=== PATIENT | female | born 2000 | race Two or more races ===

== ENCOUNTER 2019-04-01 04:06 | Observation (INO) | payer MEDICAID, OTHER ==
[~2019-04-01] VITALS: Ht 154.9 cm; Wt 65.7 kg
--- NOTE | 2019-04-01 04:18 | NUR ---
PT AMBULATES FROM TRIAGE TO ROOM WITH STEADY GAIT.
[2019-04-01] MEDS ORDERED: MAALOX/HYOSCYAMINE/LIDOCAINE 45 ML BTL ONE (04:34)
--- NOTE | 2019-04-01 04:35 | NUR ---
PT MEDICATED PER MAR.
[2019-04-01] MEDS ORDERED: MAALOX/HYOSCYAMINE/LIDOCAINE 45 ML BTL PO ONE (05:00)
[2019-04-01 05:09] LABS: BASOPHILS # (AUTO) 0.05 x10^3/uL (0-0.3); BASOPHILS % (AUTO) 1 % (0-1); EOSINOPHILS # (AUTO) 0.32 x10^3/uL (0-0.8); EOSINOPHILS % (AUTO) 4 % (1-7); LYMPHOCYTES # (AUTO) 1.55 x10^3/uL (1-6.1); LYMPHOCYTES % (AUTO) 18 % (22-44); MD NO; MEAN CORPUSCULAR HEMOGLOBIN 27.6 pg (27.0-34.8); MEAN CORPUSCULAR HGB CONC 32.3 g/dL (32.4-35.8); MEAN CORPUSCULAR VOLUME 85.3 fL (80-100); MEAN PLATELET VOLUME 8.2 fL (7.4-10.4); MONOCYTES # (AUTO) 0.69 x10^3/uL (0-1.4); MONOCYTES % (AUTO) 8 % (2-9); NEUTROPHILS # (AUTO) 6.17 x10^3/uL (1.8-8.0); NEUTROPHILS % (AUTO) 70 % (42-75); PLATELET COUNT 340 x10^3/uL (130-400); RED BLOOD COUNT 4.68 x10^6/uL (3.82-5.3); RED CELL DISTRIBUTION WIDTH 16.6 % (9.6-15.2)
[2019-04-01 05:22] LABS: ALBUMIN 3.4 g/dL (3.4-5.0); ANION GAP 8 mmol/L (5-15); CALCIUM 9.2 mg/dL (8.5-10.1); CHLORIDE 108 mmol/L (98-107); CREATININE 0.43 mg/dL (0.55-1.02)
[2019-04-01 05:26] LABS: ALKALINE PHOSPHATASE 405 U/L (45-117); BILIRUBIN,TOTAL 1.9 mg/dL (0.2-1.0); TOTAL PROTEIN 8.1 g/dL (6.4-8.2)
[2019-04-01 05:28] LABS: ALANINE AMINOTRANSFERASE 1127 U/L (12-78)
[2019-04-01] MEDS ORDERED: POTASSIUM CHLORIDE 40 MEQ in SODIUM CHLORIDE 0.9% 500 ML IV ONE (06:00)
--- NOTE | 2019-04-01 06:08 | NUR ---
IV ACCESS INITIATED. URINE COLLECTED AND SENT TO LAB AT THIS TIME. PT AWARE OF POC AND VERBALIZES UNDERSTANDING. CALL LIGHT IS WITHIN REACH. PHARMACY NOTIFIED OF NEED FOR POTASSIUM, AND JOVANNY IN PHARMACY TO TUBE POTASSIUM ONCE MIXED.
[2019-04-01 06:24] LABS: CULTURE INDICATED? YES; MICROSCOPIC INDICATED
--- NOTE | 2019-04-01 06:51 | NUR ---
REPORT RECEIVED FROM KURT BROWNLEE.
--- NOTE | 2019-04-01 06:54 | NUR ---
REPORT OF PT TO KEM SANCHEZ AT THIS TIME. ALL QUESTIONS ANSWERED.
--- NOTE | 2019-04-01 07:20 | NUR ---
MEDICATION ORDERED FROM PHARMACY. CEFOTAN AND POTASSIUM ARE COMPATIBLE PER PHARMACY. AWAITING CEFOTAN AT THIS TIME.
[2019-04-01] MEDS ORDERED: CEFOTETAN PMX 1GM/50ML 50 ML IV ONE (07:30)
--- NOTE | 2019-04-01 08:27 | NUR ---
BREAK RN: PATIENT MEDICATED PER EMAR
--- NOTE | 2019-04-01 09:09 | NUR ---
pt resting in [facility]. pt's aox4. resps even and unlabored. bp/spo2 monitors in place. call light within reach.
--- NOTE | 2019-04-01 10:09 | NUR ---
report given to julieta monzon. all questions answered.
[2019-04-01] MEDS ORDERED: MORPHINE SULFATE 4 MG/ML, 1ML IVPush PRN (10:30)
[2019-04-01] MEDS ORDERED: ONDANSETRON 2MG/ML, 2ML IVPush PRN (10:30)
[2019-04-01 10:39] VITALS: BP 90/50
[2019-04-01] MEDS ORDERED: No home meds. (10:48)
[2019-04-01 12:36] VITALS: BP 94/60
[2019-04-01] MEDS: POTASSIUM CHLORIDE 20 MEQ in D5%-0.45% NACL 1,000 ML IV SCH ×2 (14:10→21:05)
[2019-04-01] MEDS ORDERED: EPINEPHRINE 1 MG/ML, 1ML ONE (14:31)
[2019-04-01] MEDS ORDERED: BUPIVACAINE/PF 0.5% ONE (14:31)
[2019-04-01] MEDS ORDERED: MIDAZOLAM 1 MG/ML, 2ML ONE (14:34)
[2019-04-01] MEDS ORDERED: FENTANYL PF 250 MCG/5ML ONE (14:34)
[2019-04-01] MEDS ORDERED: ONDANSETRON ODT 8 MG PO PRN (15:00)
[2019-04-01] MEDS ORDERED: PROMETHAZINE 25 MG SUPP PR PRN (15:00)
[2019-04-01] MEDS ORDERED: OXYcodone 5 MG/5 ML ORAL.SOL UDC PO PRN (15:00)
[2019-04-01] MEDS ORDERED: PROMETHAZINE 25 MG/ML, 1ML IV PRN (15:00)
[2019-04-01] MEDS ORDERED: ACETAMINOPHEN 325 MG TABLET PO PRN (15:00)
[2019-04-01] MEDS ORDERED: LORazepam 2 MG/ML, 1ML IVPush PRN (15:00)
[2019-04-01] MEDS ORDERED: ONDANSETRON 2MG/ML, 2ML IV PRN (15:00)
[2019-04-01] MEDS ORDERED: ROCURONIUM 10MG/ML,5ML ONE (15:33)
[2019-04-01] MEDS ORDERED: ONDANSETRON 2MG/ML, 2ML ONE (15:33)
[2019-04-01] MEDS ORDERED: GLYCOPYRROLATE 0.2MG/1ML, 5ML ONE (15:33)
[2019-04-01] MEDS ORDERED: CEFAZOLIN 1,000 MG ONE (15:33)
[2019-04-01] MEDS ORDERED: PROPOFOL 10 MG/ML, 20ML ONE (15:33)
[2019-04-01] MEDS ORDERED: SUCCINYLCHOLINE 20 MG/ML, 10ML ONE (15:33)
[2019-04-01] MEDS ORDERED: DEXAMETHASONE 4 MG/ML, 1ML ONE (15:33)
[2019-04-01] MEDS ORDERED: NEOSTIGMINE 1 MG/ML, 10ML ONE (15:33)
[2019-04-01] MEDS ORDERED: ACETAMINOPHEN 650 MG/20.3 ML UDC ONE (16:03)
[2019-04-01] MEDS ORDERED: FENTANYL PF 100 MCG/2ML ONE (16:04)
[2019-04-01] MEDS ORDERED: OXYcodone 5 MG/5 ML ORAL.SOL UDC ONE (16:04)
[2019-04-01] MEDS: FENTANYL PF 100 MCG/2ML IV PRN ×4 (16:08→16:20)
[2019-04-01] MEDS ORDERED: HYDROmorphone 1 MG/ML, 1ML INJ ONE (16:27)
[2019-04-01] MEDS: HYDROmorphone 2 MG/ML, 1ML IVPush PRN ×2 (16:30→16:50)
[2019-04-01 18:35] VITALS: BP 117/76
[2019-04-01] MEDS: OXYcodone/APAP 5/325MG TABLET PO PRN ×2 (19:39→23:49)
[2019-04-02 00:10] VITALS: BP 105/70
[2019-04-02] MEDS: OXYcodone/APAP 5/325MG TABLET PO PRN ×2 (04:20→09:05)
[2019-04-02] MEDS: POTASSIUM CHLORIDE 20 MEQ in D5%-0.45% NACL 1,000 ML IV SCH (04:24)
[2019-04-02 06:00] LABS: BASOPHILS # (AUTO) 0.02 x10^3/uL (0-0.3); BASOPHILS % (AUTO) 0 % (0-1); EOSINOPHILS # (AUTO) 0.15 x10^3/uL (0-0.8); EOSINOPHILS % (AUTO) 1 % (1-7); LYMPHOCYTES # (AUTO) 1.47 x10^3/uL (1-6.1); LYMPHOCYTES % (AUTO) 10 % (22-44); MD NO; MEAN CORPUSCULAR HEMOGLOBIN 27.9 pg (27.0-34.8); MEAN CORPUSCULAR HGB CONC 32.6 g/dL (32.4-35.8); MEAN CORPUSCULAR VOLUME 85.8 fL (80-100); MEAN PLATELET VOLUME 8.5 fL (7.4-10.4); MONOCYTES % (AUTO) 7 % (2-9); NEUTROPHILS # (AUTO) 11.61 x10^3/uL (1.8-8.0); NEUTROPHILS % (AUTO) 82 % (42-75); PLATELET COUNT 344 x10^3/uL (130-400); RED BLOOD COUNT 4.43 x10^6/uL (3.82-5.3); RED CELL DISTRIBUTION WIDTH 16.7 % (9.6-15.2)
[2019-04-02 06:43] VITALS: BP 105/62
[2019-04-02] MEDS ORDERED: OXYC-302 PO (11:42)
[2019-04-02 12:02] VITALS: BP 93/58
== END 2019-04-02 13:10 | disposition home or self-care (01) ==
LOC: ED 05:56 → ORIP 09:36 → 4NE 10:20 → DCLOUNGE 04-02 12:53
PROVIDERS: ADMIT Surgery; ATTEND Surgery
DX: K80.01 Calculus of gallbladder with acute cholecystitis with obstruction (principal); E87.6 Hypokalemia; Z79.899 Other long term (current) drug therapy
CPT/HCPCS: 36415; 47562; 76700; 80053; 81001; 83690; 84703; 85025; 87086; 88304; 96365; 96366; 96368; 99284; C1729; G0378; J0171; J0690; J1100; J1170; J2250; J2405; J2704; J2710; J3010; J3480; J3490; J7040; S0020; J0330

== ENCOUNTER 2019-04-05 17:53 | Inpatient (IN) | payer OTHER ==
[~2019-04-05] VITALS: Ht 165.1 cm; Wt 51.2 kg
[~2019-04-05 17:53] MED LIST: No home meds.; OXYC-302 PO
[2019-04-05] MEDS ORDERED: MORPHINE SULFATE 4 MG/ML, 1ML IVPush PRN (18:30)
[2019-04-05] MEDS ORDERED: SODIUM CHLORIDE FLUSH 10ML SYR IVF ONE (18:30)
[2019-04-05] MEDS ORDERED: ONDANSETRON 2MG/ML, 2ML IVPush ONE (18:30)
[2019-04-05] MEDS ORDERED: MORPHINE SULFATE 4 MG/ML, 1ML ONE (18:39)
[2019-04-05] MEDS ORDERED: ONDANSETRON 2MG/ML, 2ML ONE (18:39)
[2019-04-05 18:47] LABS: BASOPHILS % (AUTO) 0 % (0-1); EOSINOPHILS # (AUTO) 0.28 x10^3/uL (0-0.8); EOSINOPHILS % (AUTO) 3 % (1-7); LYMPHOCYTES # (AUTO) 1.48 x10^3/uL (1-6.1); LYMPHOCYTES % (AUTO) 13 % (22-44); MD NO; MEAN CORPUSCULAR HEMOGLOBIN 28.6 pg (27.0-34.8); MEAN CORPUSCULAR HGB CONC 33.5 g/dL (32.4-35.8); MEAN CORPUSCULAR VOLUME 85.5 fL (80-100); MEAN PLATELET VOLUME 8.4 fL (7.4-10.4); MONOCYTES # (AUTO) 0.82 x10^3/uL (0-1.4); MONOCYTES % (AUTO) 7 % (2-9); NEUTROPHILS # (AUTO) 8.49 x10^3/uL (1.8-8.0); NEUTROPHILS % (AUTO) 77 % (42-75); PLATELET COUNT 365 x10^3/uL (130-400); RED BLOOD COUNT 4.41 x10^6/uL (3.82-5.3)
[2019-04-05 18:54] LABS: ALBUMIN 3.5 g/dL (3.4-5.0); ANION GAP 9 mmol/L (5-15); CALCIUM 9.2 mg/dL (8.5-10.1); CHLORIDE 104 mmol/L (98-107)
[2019-04-05 19:00] LABS: ALKALINE PHOSPHATASE 733 U/L (45-117); BILIRUBIN,TOTAL 3.3 mg/dL (0.2-1.0); CREATININE 0.48 mg/dL (0.55-1.02); TOTAL PROTEIN 8.4 g/dL (6.4-8.2)
[2019-04-05 19:02] LABS: ALANINE AMINOTRANSFERASE 1098 U/L (12-78)
[2019-04-05 19:21] LABS: MICROSCOPIC NOT IND
[2019-04-05 19:26] LABS: CULTURE INDICATED? NO
[2019-04-05] MEDS ORDERED: SODIUM CHLORIDE 0.9% 1,000ML IVBOLUS ONE (19:30)
[2019-04-05] MEDS ORDERED: PIPERACILLIN/TAZO/PMX 3.375GM 50 ML IV ONE (19:30)
[2019-04-05] MEDS ORDERED: PIPERACILLIN/TAZO/PMX 3.375GM 50 ML ONE (19:57)
[2019-04-05] MEDS ORDERED: ONDANSETRON 2MG/ML, 2ML IVPush PRN (22:00)
[2019-04-05] MEDS ORDERED: PROMETHAZINE 25 MG/ML, 1ML IM PRN (22:00)
[2019-04-05] MEDS ORDERED: morphine SULFATE 10 MG/ML, 1ML IVPush PRN (22:00)
[2019-04-05 23:21] LABS: INTERNATIONAL NORMALIZED RATIO 0.94 (0.93-1.1); PROTHROMBIN TIME 9.9 Seconds (9.6-11.5)
[2019-04-05] MEDS ORDERED: OMNIPAQUE 350 MG/ML, 100ML BOTTLE ONE (23:24)
[2019-04-06 00:18] VITALS: BP 104/65
[2019-04-06] MEDS: LACTATED RINGERS 1,000 ML IV SCH ×3 (01:33→22:41)
[2019-04-06 06:40] LABS: BASOPHILS # (AUTO) 0.01 x10^3/uL (0-0.3); BASOPHILS % (AUTO) 0 % (0-1); EOSINOPHILS # (AUTO) 0.32 x10^3/uL (0-0.8); EOSINOPHILS % (AUTO) 3 % (1-7); LYMPHOCYTES # (AUTO) 1.57 x10^3/uL (1-6.1); LYMPHOCYTES % (AUTO) 15 % (22-44); MD NO; MEAN CORPUSCULAR HEMOGLOBIN 28.3 pg (27.0-34.8); MEAN CORPUSCULAR HGB CONC 32.8 g/dL (32.4-35.8); MEAN CORPUSCULAR VOLUME 86.3 fL (80-100); MEAN PLATELET VOLUME 8.2 fL (7.4-10.4); MONOCYTES # (AUTO) 0.64 x10^3/uL (0-1.4); MONOCYTES % (AUTO) 6 % (2-9); NEUTROPHILS # (AUTO) 7.98 x10^3/uL (1.8-8.0); NEUTROPHILS % (AUTO) 76 % (42-75); PLATELET COUNT 341 x10^3/uL (130-400); RED BLOOD COUNT 4.19 x10^6/uL (3.82-5.3); RED CELL DISTRIBUTION WIDTH 16.6 % (9.6-15.2)
[2019-04-06 06:50] LABS: ALANINE AMINOTRANSFERASE 804 U/L (12-78); ALBUMIN 3.2 g/dL (3.4-5.0); ANION GAP 11 mmol/L (5-15); CALCIUM 8.9 mg/dL (8.5-10.1); CHLORIDE 108 mmol/L (98-107); CREATININE 0.37 mg/dL (0.55-1.02)
[2019-04-06 06:53] LABS: ALKALINE PHOSPHATASE 585 U/L (45-117); BILIRUBIN,TOTAL 1.1 mg/dL (0.2-1.0); TOTAL PROTEIN 7.7 g/dL (6.4-8.2)
[2019-04-06 08:22] VITALS: BP 91/52
[2019-04-06 08:32] VITALS: BP 97/65
[2019-04-06] MEDS: SENNA/DOCUSATE TABLET PO SCH (10:39)
[2019-04-06] MEDS ORDERED: FENTANYL PF 250 MCG/5ML ONE (11:53)
[2019-04-06] MEDS ORDERED: ROCURONIUM 10MG/ML,5ML ONE (11:55)
[2019-04-06] MEDS ORDERED: PROPOFOL 10 MG/ML, 20ML ONE (11:55)
[2019-04-06] MEDS ORDERED: OXYcodone 5 MG/5 ML ORAL.SOL UDC PO PRN (12:00)
[2019-04-06] MEDS ORDERED: MEPERIDINE/PF 25MG/ML,1ML IVPush PRN (12:00)
[2019-04-06] MEDS ORDERED: HALOPERIDOL 5 MG/ML IV PRN (12:00)
[2019-04-06] MEDS ORDERED: FENTANYL PF 100 MCG/2ML IV PRN (12:00)
[2019-04-06] MEDS ORDERED: HYDROmorphone 2 MG/ML, 1ML IVPush PRN (12:00)
[2019-04-06] MEDS ORDERED: PROMETHAZINE 25 MG/ML, 1ML IV PRN (12:00)
[2019-04-06] MEDS ORDERED: MORPHINE SULFATE 4 MG/ML, 1ML IVPush PRN (12:00)
[2019-04-06] MEDS ORDERED: GLYCOPYRROLATE 0.2MG/1ML, 5ML ONE (12:03)
[2019-04-06] MEDS ORDERED: ONDANSETRON 2MG/ML, 2ML ONE (12:03)
[2019-04-06] MEDS ORDERED: DEXAMETHASONE 4 MG/ML, 1ML ONE ×2 (12:03)
[2019-04-06] MEDS ORDERED: NEOSTIGMINE 1 MG/ML, 10ML ONE (12:03)
[2019-04-06] MEDS ORDERED: MIDAZOLAM 1 MG/ML, 2ML ONE (12:04)
[2019-04-06 18:54] VITALS: BP 96/64
[2019-04-07 02:23] VITALS: BP 102/56
[2019-04-07 06:40] LABS: BASOPHILS # (AUTO) 0.02 x10^3/uL (0-0.3); BASOPHILS % (AUTO) 0 % (0-1); EOSINOPHILS # (AUTO) 0.17 x10^3/uL (0-0.8); EOSINOPHILS % (AUTO) 2 % (1-7); LYMPHOCYTES % (AUTO) 26 % (22-44); MD NO; MEAN CORPUSCULAR HEMOGLOBIN 28.4 pg (27.0-34.8); MEAN CORPUSCULAR VOLUME 86.1 fL (80-100); MEAN PLATELET VOLUME 8.5 fL (7.4-10.4); MONOCYTES # (AUTO) 0.93 x10^3/uL (0-1.4); MONOCYTES % (AUTO) 11 % (2-9); NEUTROPHILS # (AUTO) 5.37 x10^3/uL (1.8-8.0); NEUTROPHILS % (AUTO) 61 % (42-75); PLATELET COUNT 340 x10^3/uL (130-400); RED BLOOD COUNT 3.85 x10^6/uL (3.82-5.3); RED CELL DISTRIBUTION WIDTH 17.1 % (9.6-15.2)
[2019-04-07 06:47] LABS: CHLORIDE 108 mmol/L (98-107)
[2019-04-07 06:54] LABS: ALANINE AMINOTRANSFERASE 523 U/L (12-78); ALKALINE PHOSPHATASE 454 U/L (45-117); ANION GAP 10 mmol/L (5-15); BILIRUBIN,TOTAL 1.1 mg/dL (0.2-1.0); CALCIUM 9.1 mg/dL (8.5-10.1); CREATININE 0.34 mg/dL (0.55-1.02); TOTAL PROTEIN 7.2 g/dL (6.4-8.2)
[2019-04-07] MEDS: LACTATED RINGERS 1,000 ML IV SCH ×3 (07:39→23:10)
[2019-04-07] MEDS: SENNA/DOCUSATE TABLET PO SCH (07:43)
[2019-04-07 08:36] VITALS: BP 91/55
[2019-04-07] MEDS: POTASSIUM CHLORIDE 20 MEQ TAB.ER.PRT PO SCH ×2 (10:21→11:57)
[2019-04-07 12:52] VITALS: BP 95/56
[2019-04-07 18:42] VITALS: BP 93/57
[2019-04-08 01:02] VITALS: BP 92/56
[2019-04-08 06:43] LABS: BASOPHILS # (AUTO) 0.03 x10^3/uL (0-0.3); BASOPHILS % (AUTO) 0 % (0-1); EOSINOPHILS # (AUTO) 0.27 x10^3/uL (0-0.8); EOSINOPHILS % (AUTO) 4 % (1-7); LYMPHOCYTES # (AUTO) 2.33 x10^3/uL (1-6.1); LYMPHOCYTES % (AUTO) 31 % (22-44); MD NO; MEAN CORPUSCULAR HEMOGLOBIN 28.2 pg (27.0-34.8); MEAN CORPUSCULAR HGB CONC 32.5 g/dL (32.4-35.8); MEAN CORPUSCULAR VOLUME 86.8 fL (80-100); MEAN PLATELET VOLUME 8.6 fL (7.4-10.4); MONOCYTES # (AUTO) 0.65 x10^3/uL (0-1.4); MONOCYTES % (AUTO) 8 % (2-9); NEUTROPHILS # (AUTO) 4.36 x10^3/uL (1.8-8.0); NEUTROPHILS % (AUTO) 57 % (42-75); PLATELET COUNT 335 x10^3/uL (130-400); RED BLOOD COUNT 4.03 x10^6/uL (3.82-5.3); RED CELL DISTRIBUTION WIDTH 17.1 % (9.6-15.2)
[2019-04-08 06:58] LABS: CHLORIDE 108 mmol/L (98-107)
[2019-04-08 07:08] LABS: ALANINE AMINOTRANSFERASE 380 U/L (12-78); ALBUMIN 3.1 g/dL (3.4-5.0); ALKALINE PHOSPHATASE 376 U/L (45-117); ANION GAP 9 mmol/L (5-15); BILIRUBIN,TOTAL 0.8 mg/dL (0.2-1.0); CALCIUM 9.4 mg/dL (8.5-10.1); CREATININE 0.36 mg/dL (0.55-1.02); TOTAL PROTEIN 7.2 g/dL (6.4-8.2)
[2019-04-08 07:21] VITALS: BP 92/59
[2019-04-08] MEDS: SENNA/DOCUSATE TABLET PO SCH (08:05)
[2019-04-08] MEDS: LACTATED RINGERS 1,000 ML IV SCH ×2 (08:05→15:00)
[2019-04-08 14:55] VITALS: BP 98/61
[2019-04-08] MEDS ORDERED: FLU VACC QS2019-20 36MOS UP/PF 0.5 ML IM-VACC ONE (18:00)
== END 2019-04-08 19:08 | disposition home or self-care (01) | DRG 444 ==
LOC: ED 19:39 → EDIP 21:27 → 3N 21:49
PROVIDERS: ADMIT Family Medicine; ATTEND Internal Medicine
PROC: 0FJB8ZZ Inspection of Hepatobiliary Duct, Via Natural or Artificial Opening Endoscopic (ICD-10-PCS; principal; 2019-04-06 10:30)
DX: K80.50 Calculus of bile duct without cholangitis or cholecystitis without obstruction (principal); K85.10 Biliary acute pancreatitis without necrosis or infection; J98.11 Atelectasis; G89.18 Other acute postprocedural pain; Z90.49 Acquired absence of other specified parts of digestive tract
CPT/HCPCS: 36415; 74177; 74181; 74328; 80053; 81003; 83690; 83735; 84100; 84132; 84703; 85025; 85610; 90686; 96361; 96374; G0378; J1100; J2250; J2405; J2704; J2710; J3010; Q9967; C1769; C8901; J2270; J7030; J7120